=== PATIENT | female | born 1965 | race Native Hawaiian/Other Pacific Islander ===

== ENCOUNTER 2016-09-23 08:41 | Outpatient (CLI) | payer BC ==
[~2016-09-23 08:41] MED LIST: ALPR0.5T24 PO; BIOTIN1000 MCG OR; BUPR150T PO; CARV3.12 PO; CLARITIN10 MG PO; PROAIR HFA IN; PROZAC10 MG PO; ROBAXIN500 MG PO; SIMV40TA57; ZANTAC 75 PO
== END 2016-09-23 19:06 | disposition home or self-care (01) ==
LOC: MAMMO 08:41
DX: Z12.31 Encounter for screening mammogram for malignant neoplasm of breast (principal)
CPT/HCPCS: G0202-TC

== ENCOUNTER 2017-11-17 10:49 | Outpatient (CLI) | payer OTHER | END 2017-11-17 22:17 | disposition home or self-care (01) | LOC: MAMMO 10:49 | DX: Z12.31 Encounter for screening mammogram for malignant neoplasm of breast (principal) ==

== ENCOUNTER 2020-10-26 14:23 | Outpatient (CLI) | payer OTHER | END 2020-10-26 23:03 | disposition home or self-care (01) | LOC: MAMMO 14:23 | PROVIDERS: ATTEND Nurse Practitioner | DX: Z12.31 Encounter for screening mammogram for malignant neoplasm of breast (principal) ==

== ENCOUNTER 2021-11-21 11:24 | Outpatient (CLI) | payer OTHER | END 2021-11-21 19:55 | disposition home or self-care (01) | LOC: US 11:24 | PROVIDERS: ATTEND Nurse Practitioner | DX: R10.32 Left lower quadrant pain (principal) ==

== ENCOUNTER 2021-11-22 09:52 | Outpatient (CLI) | payer OTHER | END 2021-11-22 19:21 | disposition home or self-care (01) | LOC: CT 09:52 | PROVIDERS: ATTEND Nurse Practitioner | DX: R10.32 Left lower quadrant pain (principal) | CPT/HCPCS: 36415; 82565; 84520; Q9963 ==

== ENCOUNTER 2023-06-28 13:46 | Observation (INO) | payer OTHER ==
[2023-06-28] VITALS (8 sets, daily range): BP systolic 94–124; BP diastolic 42–92; TEMP 98–98.6; Ht 152.4 cm; Wt 68.1 kg
[~2023-06-28] VITALS: Ht 152.4 cm; Wt 68.1 kg
[2023-06-28 14:47] LABS: PLATELET COUNT 480 K/uL (152-353)
[2023-06-28 14:55] LABS: POTASSIUM 2.6 mmol/L (3.6-5.2)
[2023-06-28] MEDS ORDERED: QUETIAPINE25 MG PO (18:08)
[2023-06-28] MEDS ORDERED: ROPINIROLE0.25 MG PO (18:10)
[2023-06-28] MEDS ORDERED: ALBUTEROL1.25 MG/3 INH (18:12)
[2023-06-29] VITALS (7 sets, daily range): BP systolic 91–151; BP diastolic 36–64; TEMP 98.3–98.7
[2023-06-29 05:19] LABS: PLATELET COUNT 375 K/uL (152-353)
[2023-06-29 05:32] LABS: POTASSIUM 3.7 mmol/L (3.6-5.2)
[2023-06-30 03:37] VITALS: BP 121/43; TEMP 98.6
[2023-06-30 04:55] LABS: PLATELET COUNT 371 K/uL (152-353)
[2023-06-30 05:35] LABS: POTASSIUM 3.1 mmol/L (3.6-5.2)
[2023-06-30 08:00] VITALS: BP 137/55; TEMP 98.4
[2023-06-30 12:00] VITALS: BP 111/49; TEMP 98.1
[2023-06-30] MEDS ORDERED: LEVOFLOXACIN750 MG PO (13:54)
[2023-06-30] MEDS ORDERED: ONDA4TAB3 PO (13:56)
[2023-07-05] MEDS ORDERED: FURO20TA67 PO (08:55)
[2023-07-05] MEDS ORDERED: GRALISE600 MG PO (08:56)
[2023-07-05] MEDS ORDERED: TRAMADOL HYDROC50 MG PO (08:57)
[2023-07-05] MEDS ORDERED: MECLIZINE25 MG PO (08:58)
[2023-07-05] MEDS ORDERED: FLUOXETINE HYDR20 MG PO (08:59)
== END 2023-06-30 15:07 | disposition home or self-care (01) ==
LOC: ED 13:46 → MED/SURG 16:08
PROVIDERS: ADMIT Family Medicine; ATTEND Family Medicine
DX: J18.9 Pneumonia, unspecified organism (principal); I50.9 Heart failure, unspecified; I16.0 Hypertensive urgency; R53.1 Weakness; R50.9 Fever, unspecified; R63.0 Anorexia; R11.0 Nausea; R10.9 Unspecified abdominal pain; E87.6 Hypokalemia; E86.0 Dehydration; F17.210 Nicotine dependence, cigarettes, uncomplicated; I95.1 Orthostatic hypotension; Z79.899 Other long term (current) drug therapy; I11.0 Hypertensive heart disease with heart failure; Z68.28 Body mass index [BMI] 28.0-28.9, adult
CPT/HCPCS: 36415; 36600; 80053; 80307; 81002; 82550; 82805; 83605; 83735; 83880; 84100; 84443; 84484; 85027; 86140; 87040; 87502; 87635; 93005; 94664; 94760; 96361; 96365; 96367; 96375; 99221; 99284; G0378; J0456; J0696; J2930; U0003